=== PATIENT | female | born 1945 | race Caucasian/White ===

== ENCOUNTER 2021-10-30 04:37 | Day surgery (SDC) | payer OTHER, BC ==
[2021-10-27 09:08] VITALS: BMI 30.5
[2021-10-30 14:35] VITALS: TEMP 98
[2021-10-30 14:52] VITALS: BP 123/56; PULSE 64
== END 2021-10-30 15:27 | disposition home or self-care (01) ==
LOC: JRADIR 04:37
PROVIDERS: ATTEND Internal Medicine Hematology & Oncology
PROC: BW40ZZZ Ultrasonography of Abdomen (ICD-10-PCS; principal; 2021-10-30)
PROC: 0JB83ZX Excision of Abdomen Subcutaneous Tissue and Fascia, Percutaneous Approach, Diagnostic (ICD-10-PCS; 2021-10-30)
DX: C44.599 Other specified malignant neoplasm of skin of other part of trunk (principal); Z85.43 Personal history of malignant neoplasm of ovary
CPT/HCPCS: 49180; 87070; 87075; 87102; 87116; 87205; 87206; 87210; 88108; 88305-TC; 88341-TC

== ENCOUNTER 2021-12-25 04:39 | Day surgery (SDC) | payer OTHER, BC ==
[2021-12-25] MEDS ORDERED: MIDAZOLAM HCL 2 MG/2 ML SINGLE DOSE VIAL ONE (10:34)
[2021-12-25] MEDS ORDERED: MIDAZOLAM HCL 2 MG/2 ML SINGLE DOSE VIAL IVPUSH ONE (10:40)
[2021-12-25] MEDS ORDERED: ceFAZolin SODIUM 1 GM VIAL IVPB ONE (10:50)
[2021-12-25 14:01] VITALS: BP 119/56; PULSE 80; TEMP 98
== END 2021-12-25 13:30 | disposition home or self-care (01) ==
LOC: JRADIR 04:39
PROVIDERS: ATTEND Internal Medicine Hematology & Oncology
PROC: 02H633Z Insertion of Infusion Device into Right Atrium, Percutaneous Approach (ICD-10-PCS; principal; 2021-12-25)
DX: C56.9 Malignant neoplasm of unspecified ovary (principal)
CPT/HCPCS: 36561; C1788

== ENCOUNTER 2021-12-26 07:10 | Day surgery (SDC) | payer OTHER, BC ==
[2021-12-26] MEDS ORDERED: SODIUM CHLORIDE 250 ML IV ONE (09:00)
[2021-12-26 09:18] LABS: RBC 4.17 M/mm3 (3.60-5.2); WHITE BLOOD COUNT 5.9 K/mm3 (4.0-10.0)
[2021-12-26 09:19] LABS: BASO % 0.2 % (0-2.0); EOS % 0.2 % (0-4.5); HEMATOCRIT 38.4 % (32.4-45.2); LYMPH % 12.1 % (8-40); MCH 31.1 pg (25.7-33.7); MCHC 33.8 g/dl (32.0-36.0); MEAN PLT VOLUME 7.9 fl (7.5-11.1); MONO % 0.6 % (3.8-10.2); NEUT % 86.9 % (42.8-82.8); PLATELET COUNT 177 10^3/uL (134-434); RDW 13.8 % (11.6-15.6)
[2021-12-26] MEDS ORDERED: FOSAPREPITANT DIMEGLUMINE 150 MG VIAL IVPB ONE (09:30)
[2021-12-26] MEDS ORDERED: FAMOTIDINE 20 MG/50 ML IVPB 20 MG/50 ML MG IVPB ONE (09:30)
[2021-12-26] MEDS ORDERED: PALONOSETRON HCL 0.25 MG/5 ML VIAL IVPUSH ONE (09:30)
[2021-12-26] MEDS ORDERED: FOSAPREPITANT DIMEGLUMINE 150 MG in SODIUM CHLORIDE 145 ML IVPB ONE (09:30)
[2021-12-26] MEDS ORDERED: DEXAMETHASONE SODIUM PHOSPHATE 10 MG, DIPHENHYDRAMINE 25 MG in SODIUM CHLORIDE 100 ML IVPB ONE (09:30)
[2021-12-26 09:41] LABS: CALCIUM 9.3 mg/dL (8.5-10.1)
[2021-12-26 09:42] LABS: ALBUMIN 3.6 g/dl (3.4-5.0); BLOOD UREA NITROGEN 23.9 mg/dL (7-18); MAGNESIUM 1.7 mg/dL (1.8-2.4)
[2021-12-26 09:45] LABS: BILIRUBIN,DIRECT 0.1 mg/dL (0.0-0.2); CREATININE 1.1 mg/dL (0.55-1.3)
[2021-12-26 09:47] LABS: BILIRUBIN,TOTAL 0.4 mg/dL (0.2-1)
[2021-12-26] MEDS ORDERED: PACLITAXEL IVPB ONE (10:00)
[2021-12-26] MEDS ORDERED: SODIUM CHLORIDE IVPB ONE ×2 (10:00→13:00)
[2021-12-26] MEDS ORDERED: INSULIN (NOVOLOG) ASPART 100 UNITS/ML 10ML VIAL SQ ONE (10:01)
[2021-12-26] MEDS ORDERED: MAGNESIUM 2GM/50ML STERILE WATER IVPB IVPB ONE ×2 (10:45→13:45)
[2021-12-26] MEDS ORDERED: CARBOPLATIN IVPB ONE (13:00)
[2021-12-26] MEDS ORDERED: ACETAMINOPHEN 500 MG TABLET (FP) PO ONE ×2 (13:16→13:30)
[2021-12-26 17:36] VITALS: TEMP 98.5
[2021-12-26 17:43] VITALS: BP 145/47; PULSE 72
== END 2021-12-26 17:30 | disposition home or self-care (01) ==
LOC: JONCCHEMO 07:10
PROVIDERS: ATTEND Internal Medicine Hematology & Oncology
PROC: 3E013GC Introduction of Other Therapeutic Substance into Subcutaneous Tissue, Percutaneous Approach (ICD-10-PCS; principal; 2021-12-26)
DX: C56.9 Malignant neoplasm of unspecified ovary (principal); Z76.89 Persons encountering health services in other specified circumstances
CPT/HCPCS: 36415; 80048; 80076; 82607; 83036; 83735; 84439; 84443; 85025; 96372; J1453; J2469

== ENCOUNTER 2021-12-27 07:14 | Day surgery (SDC) | payer OTHER, BC ==
[2021-12-27] MEDS ORDERED: PEGFILGRASTIM-CBQV (UDENYCA) 6 MG/0.6 ML SYRINGE SQ ONE (09:00)
[2021-12-27 17:07] VITALS: BP 127/41; PULSE 54; TEMP 97.9
== END 2021-12-27 15:30 | disposition home or self-care (01) ==
LOC: JONCCHEMO 07:14
PROVIDERS: ATTEND Internal Medicine Hematology & Oncology
PROC: 3E013GC Introduction of Other Therapeutic Substance into Subcutaneous Tissue, Percutaneous Approach (ICD-10-PCS; principal; 2021-12-27)
DX: C56.9 Malignant neoplasm of unspecified ovary (principal); Z76.89 Persons encountering health services in other specified circumstances
CPT/HCPCS: 96372; Q5111

== ENCOUNTER 2022-01-16 06:35 | Day surgery (SDC) | payer OTHER, BC ==
[2022-01-16] MEDS ORDERED: SODIUM CHLORIDE 250 ML IV ONE (09:30)
[2022-01-16] MEDS ORDERED: FOSAPREPITANT DIMEGLUMINE 150 MG in SODIUM CHLORIDE 145 ML IVPB ONE (10:00)
[2022-01-16] MEDS ORDERED: PALONOSETRON HCL 0.25 MG/5 ML VIAL IVPUSH ONE (10:00)
[2022-01-16] MEDS ORDERED: DEXAMETHASONE SODIUM PHOSPHATE 10 MG, DIPHENHYDRAMINE 25 MG in SODIUM CHLORIDE 100 ML IVPB ONE (10:00)
[2022-01-16] MEDS ORDERED: FAMOTIDINE 20 MG/50 ML IVPB 20 MG/50 ML MG IVPB ONE (10:00)
[2022-01-16] MEDS ORDERED: SODIUM CHLORIDE IVPB ONE ×3 (10:30→13:30)
[2022-01-16] MEDS ORDERED: PACLITAXEL IVPB ONE (10:30)
[2022-01-16 11:10] LABS: BASO % 0.1 % (0-2.0); HEMATOCRIT 36.7 % (32.4-45.2); HEMOGLOBIN 12.3 GM/dL (10.7-15.3); LYMPH % 9.5 % (8-40); MCH 30.7 pg (25.7-33.7); MCHC 33.4 g/dl (32.0-36.0); MEAN CELL VOLUME 91.7 fl (80-96); MEAN PLT VOLUME 7.2 fl (7.5-11.1); MONO % 0.9 % (3.8-10.2); NEUT % 89.5 % (42.8-82.8); PLATELET COUNT 287 10^3/uL (134-434); RDW 14.7 % (11.6-15.6); WHITE BLOOD COUNT 5.2 K/mm3 (4.0-10.0)
[2022-01-16 11:33] LABS: CALCIUM 9.5 mg/dL (8.5-10.1)
[2022-01-16 11:34] LABS: ALBUMIN 3.7 g/dl (3.4-5.0)
[2022-01-16 11:36] LABS: BILIRUBIN,DIRECT 0.1 mg/dL (0.0-0.2)
[2022-01-16 11:37] LABS: CREATININE 1.1 mg/dL (0.55-1.3)
[2022-01-16 11:38] LABS: TOT PROT 6.9 g/dl (6.4-8.2)
[2022-01-16 11:39] LABS: BILIRUBIN,TOTAL 0.4 mg/dL (0.2-1)
[2022-01-16 11:48] LABS: MAGNESIUM 1.8 mg/dL (1.8-2.4)
[2022-01-16] MEDS ORDERED: INSULIN (NOVOLOG) ASPART 100 UNITS/ML 10ML VIAL SQ ONE (11:51)
[2022-01-16] MEDS ORDERED: CARBOPLATIN IVPB ONE ×2 (13:00→13:30)
[2022-01-16 15:29] VITALS: TEMP 98.2
[2022-01-16 18:36] VITALS: BP 133/58; PULSE 66
[2022-01-16] MEDS ORDERED: PORTA CATH FLUSH 10 ML IVPUSH PRN (18:36)
== END 2022-01-16 18:15 | disposition home or self-care (01) ==
LOC: JONCCHEMO 06:35
PROVIDERS: ATTEND Internal Medicine Hematology & Oncology
PROC: 3E013GC Introduction of Other Therapeutic Substance into Subcutaneous Tissue, Percutaneous Approach (ICD-10-PCS; principal; 2022-01-16)
DX: C56.9 Malignant neoplasm of unspecified ovary (principal); Z76.89 Persons encountering health services in other specified circumstances
CPT/HCPCS: 36415; 80048; 80076; 83735; 85025; 96372; J1453; J2469

== ENCOUNTER 2022-01-17 07:05 | Day surgery (SDC) | payer OTHER, BC ==
[2022-01-17] MEDS ORDERED: PEGFILGRASTIM-CBQV (UDENYCA) 6 MG/0.6 ML SYRINGE SQ ONE (10:45)
[2022-01-17 18:28] VITALS: BP 132/60; PULSE 58; TEMP 98
== END 2022-01-17 17:00 | disposition home or self-care (01) ==
LOC: JONCCHEMO 07:05
PROVIDERS: ATTEND Internal Medicine Hematology & Oncology
PROC: 3E013GC Introduction of Other Therapeutic Substance into Subcutaneous Tissue, Percutaneous Approach (ICD-10-PCS; principal; 2022-01-17)
DX: C56.9 Malignant neoplasm of unspecified ovary (principal); Z76.89 Persons encountering health services in other specified circumstances
CPT/HCPCS: 96372; Q5111

== ENCOUNTER 2022-01-26 04:27 | Day surgery (SDC) | payer OTHER, BC ==
[2022-01-23 13:45] VITALS: BMI 30.7
[2022-01-26 12:33] VITALS: TEMP 98.7
[2022-01-26 13:58] VITALS: BP 127/46; PULSE 66
== END 2022-01-26 14:06 | disposition home or self-care (01) ==
LOC: JASU-ENDO 04:27
PROVIDERS: ATTEND Internal Medicine Gastroenterology
PROC: 0DB98ZX Excision of Duodenum, Via Natural or Artificial Opening Endoscopic, Diagnostic (ICD-10-PCS; 2022-01-26)
PROC: 0DJD8ZZ Inspection of Lower Intestinal Tract, Via Natural or Artificial Opening Endoscopic (ICD-10-PCS; principal; 2022-01-26 12:00)
DX: Z12.11 Encounter for screening for malignant neoplasm of colon (principal); C76.3 Malignant neoplasm of pelvis; C56.9 Malignant neoplasm of unspecified ovary; K64.8 Other hemorrhoids; K29.80 Duodenitis without bleeding; K44.9 Diaphragmatic hernia without obstruction or gangrene; Z86.010 Personal history of colon polyps
CPT/HCPCS: 43239; G0105; 88305-TC

== ENCOUNTER 2022-02-06 07:59 | Day surgery (SDC) | payer OTHER, BC ==
[2022-02-06] MEDS ORDERED: SODIUM CHLORIDE 250 ML IV ONE (09:00)
[2022-02-06] MEDS ORDERED: DEXAMETHASONE SODIUM PHOSPHATE 10 MG, DIPHENHYDRAMINE 25 MG in SODIUM CHLORIDE 100 ML IVPB ONE (09:30)
[2022-02-06] MEDS ORDERED: FAMOTIDINE 20 MG/50 ML IVPB 20 MG/50 ML MG IVPB ONE (09:30)
[2022-02-06] MEDS ORDERED: PALONOSETRON HCL 0.25 MG/5 ML VIAL IVPUSH ONE (09:30)
[2022-02-06] MEDS ORDERED: FOSAPREPITANT DIMEGLUMINE 150 MG in SODIUM CHLORIDE 145 ML IVPB ONE (09:30)
[2022-02-06] MEDS ORDERED: PACLITAXEL IVPB ONE (10:00)
[2022-02-06] MEDS ORDERED: SODIUM CHLORIDE IVPB ONE ×2 (10:00→13:00)
[2022-02-06 11:24] LABS: HEMATOCRIT 35.2 % (32.4-45.2); HEMOGLOBIN 11.7 GM/dL (10.7-15.3); MCH 30.7 pg (25.7-33.7); MCHC 33.2 g/dl (32.0-36.0); MEAN CELL VOLUME 92.3 fl (80-96); MEAN PLT VOLUME 7.4 fl (7.5-11.1); PLATELET COUNT 232 10^3/uL (134-434); RBC 3.81 M/mm3 (3.60-5.2); WHITE BLOOD COUNT 4.9 K/mm3 (4.0-10.0)
[2022-02-06 11:44] LABS: CALCIUM 9.7 mg/dL (8.5-10.1)
[2022-02-06 11:45] LABS: ALBUMIN 3.7 g/dl (3.4-5.0); MAGNESIUM 1.9 mg/dL (1.8-2.4)
[2022-02-06 11:48] LABS: CREATININE 0.8 mg/dL (0.55-1.3)
[2022-02-06 11:49] LABS: TOT PROT 6.9 g/dl (6.4-8.2)
[2022-02-06 11:50] LABS: BILIRUBIN,DIRECT 0.1 mg/dL (0.0-0.2)
[2022-02-06] MEDS ORDERED: INSULIN (NOVOLOG) ASPART 100 UNITS/ML 10ML VIAL SQ ONE (11:53)
[2022-02-06 11:54] LABS: ANISOCYTOSIS 0; MACROCYTOSIS 0
[2022-02-06 12:06] LABS: BILIRUBIN,TOTAL 0.4 mg/dL (0.2-1)
[2022-02-06] MEDS ORDERED: CARBOPLATIN IVPB ONE (13:00)
[2022-02-06 18:16] VITALS: TEMP 98.3
[2022-02-06] MEDS ORDERED: PORTA CATH FLUSH 10 ML IVPUSH PRN (18:16)
[2022-02-06 18:38] VITALS: BP 126/63; PULSE 70
== END 2022-02-06 18:30 | disposition home or self-care (01) ==
LOC: JONCCHEMO 07:59
PROVIDERS: ATTEND Internal Medicine Hematology & Oncology
DX: Z51.11 Encounter for antineoplastic chemotherapy (principal); C56.9 Malignant neoplasm of unspecified ovary
CPT/HCPCS: 36415; 80048; 80076; 83735; 85025; 96375; 96413; 96415; 96417; J1453; J2469

== ENCOUNTER 2022-02-07 07:15 | Day surgery (SDC) | payer OTHER, BC ==
[2022-02-07] MEDS ORDERED: PEGFILGRASTIM-CBQV (UDENYCA) 6 MG/0.6 ML SYRINGE SQ ONE (10:00)
[2022-02-07 17:43] VITALS: BP 139/52; PULSE 55; TEMP 98
== END 2022-02-07 17:50 | disposition home or self-care (01) ==
LOC: JONCCHEMO 07:15
PROVIDERS: ATTEND Internal Medicine Hematology & Oncology
PROC: 3E013GC Introduction of Other Therapeutic Substance into Subcutaneous Tissue, Percutaneous Approach (ICD-10-PCS; principal; 2022-02-07)
DX: C56.9 Malignant neoplasm of unspecified ovary (principal); Z76.89 Persons encountering health services in other specified circumstances
CPT/HCPCS: 96372; Q5111

== ENCOUNTER 2022-02-20 09:04 | Day surgery (SDC) | payer OTHER, BC ==
[2022-02-20] MEDS: MAGNESIUM SULFATE IN WATER 2 GM/50 ML IVPB IVPB SCH ×2 (09:52→10:32)
[2022-02-20 10:02] LABS: BASO % 0.3 % (0-2.0); EOS % 1.6 % (0-4.5); HEMATOCRIT 31.6 % (32.4-45.2); HEMOGLOBIN 10.7 GM/dL (10.7-15.3); LYMPH % 17.2 % (8-40); MCH 31.5 pg (25.7-33.7); MCHC 33.8 g/dl (32.0-36.0); MEAN CELL VOLUME 93.2 fl (80-96); MEAN PLT VOLUME 7.3 fl (7.5-11.1); MONO % 8.7 % (3.8-10.2); NEUT % 72.2 % (42.8-82.8); PLATELET COUNT 127 10^3/uL (134-434); RBC 3.39 M/mm3 (3.60-5.2); RDW 17.7 % (11.6-15.6); WHITE BLOOD COUNT 6.3 K/mm3 (4.0-10.0)
[2022-02-20 10:18] LABS: ALBUMIN 3.5 g/dl (3.4-5.0); BLOOD UREA NITROGEN 21.4 mg/dL (7-18); CALCIUM 9.4 mg/dL (8.5-10.1)
[2022-02-20 10:19] LABS: MAGNESIUM 1.5 mg/dL (1.8-2.4)
[2022-02-20 10:22] LABS: BILIRUBIN,DIRECT 0.1 mg/dL (0.0-0.2); CREATININE 0.8 mg/dL (0.55-1.3)
[2022-02-20 10:23] LABS: BILIRUBIN,TOTAL 0.4 mg/dL (0.2-1); TOT PROT 6.4 g/dl (6.4-8.2)
[2022-02-20 18:08] VITALS: TEMP 98.7
[2022-02-20 18:11] VITALS: BP 121/54; PULSE 66
[2022-02-20] MEDS ORDERED: PORTA CATH FLUSH 10 ML IVPUSH PRN (18:11)
== END 2022-02-20 12:00 | disposition home or self-care (01) ==
LOC: JONCNONCHE 09:04
PROVIDERS: ATTEND Internal Medicine Hematology & Oncology
PROC: 3E043GC Introduction of Other Therapeutic Substance into Central Vein, Percutaneous Approach (ICD-10-PCS; principal; 2022-02-20)
DX: C56.9 Malignant neoplasm of unspecified ovary (principal); Z76.89 Persons encountering health services in other specified circumstances
CPT/HCPCS: 36415; 80048; 80076; 83735; 85025; 96365; 96366

== ENCOUNTER 2022-03-15 06:19 | Day surgery (SDC) | payer OTHER, BC ==
[2022-03-15 10:40] LABS: BASO % 0.9 % (0-2.0); EOS % 2.2 % (0-4.5); HEMATOCRIT 33.5 % (32.4-45.2); HEMOGLOBIN 11.4 GM/dL (10.7-15.3); LYMPH % 19.8 % (8-40); MCH 32.8 pg (25.7-33.7); MCHC 34.1 g/dl (32.0-36.0); MEAN PLT VOLUME 7.2 fl (7.5-11.1); NEUT % 67.1 % (42.8-82.8); PLATELET COUNT 192 10^3/uL (134-434); RBC 3.49 M/mm3 (3.60-5.2); RDW 18.1 % (11.6-15.6); WHITE BLOOD COUNT 5.9 K/mm3 (4.0-10.0)
[2022-03-15 11:00] LABS: CALCIUM 8.8 mg/dL (8.5-10.1)
[2022-03-15] MEDS ORDERED: SODIUM CHLORIDE 250 ML IV ONE (11:00)
[2022-03-15 11:01] LABS: ALBUMIN 3.3 g/dl (3.4-5.0); BLOOD UREA NITROGEN 19.6 mg/dL (7-18); MAGNESIUM 1.7 mg/dL (1.8-2.4)
[2022-03-15 11:04] LABS: CREATININE 0.7 mg/dL (0.55-1.3)
[2022-03-15 11:06] LABS: BILIRUBIN,TOTAL 0.2 mg/dL (0.2-1); TOT PROT 6.4 g/dl (6.4-8.2)
[2022-03-15 11:07] LABS: BILIRUBIN,DIRECT 0.1 mg/dL (0.0-0.2)
[2022-03-15] MEDS ORDERED: PALONOSETRON HCL 0.25 MG/5 ML VIAL IVPUSH ONE (11:30)
[2022-03-15] MEDS ORDERED: DEXAMETHASONE SODIUM PHOSPHATE 10 MG, DIPHENHYDRAMINE 25 MG in SODIUM CHLORIDE 100 ML IVPB ONE (11:30)
[2022-03-15] MEDS ORDERED: MAGNESIUM 1GM/D5W - 1 GM/100 ML IVPB IVPB ONE (11:30)
[2022-03-15] MEDS ORDERED: FAMOTIDINE 20 MG/50 ML IVPB 20 MG/50 ML MG IVPB ONE (11:30)
[2022-03-15] MEDS ORDERED: FOSAPREPITANT DIMEGLUMINE 150 MG in SODIUM CHLORIDE 145 ML IVPB ONE (11:30)
[2022-03-15] MEDS ORDERED: SODIUM CHLORIDE IVPB ONE (12:00)
[2022-03-15] MEDS ORDERED: CARBOPLATIN IVPB ONE (12:00)
[2022-03-15] MEDS ORDERED: DOXORUBICIN HCL LIPOSOMAL IV ONE (12:30)
[2022-03-15] MEDS ORDERED: DEXTROSE 5% IV ONE (12:30)
[2022-03-15] MEDS ORDERED: WATER IV ONE (12:30)
[2022-03-15 17:51] VITALS: TEMP 98.4
[2022-03-15] MEDS ORDERED: PORTA CATH FLUSH 10 ML IVPUSH PRN (17:51)
[2022-03-16 08:52] VITALS: BP 115/73; PULSE 85
== END 2022-03-15 16:30 | disposition home or self-care (01) ==
LOC: JONCCHEMO 06:19
PROVIDERS: ATTEND Internal Medicine Hematology & Oncology
PROC: 3E04305 Introduction of Other Antineoplastic into Central Vein, Percutaneous Approach (ICD-10-PCS; principal; 2022-03-15)
PROC: 3E043GC Introduction of Other Therapeutic Substance into Central Vein, Percutaneous Approach (ICD-10-PCS; 2022-03-15)
PROC: 3E0437Z Introduction of Electrolytic and Water Balance Substance into Central Vein, Percutaneous Approach (ICD-10-PCS; 2022-03-15)
DX: Z51.11 Encounter for antineoplastic chemotherapy (principal); C56.9 Malignant neoplasm of unspecified ovary
CPT/HCPCS: 36415; 80048; 80076; 83735; 85025; 86304; 96367; 96375; 96413; 96417; J1453; J2469; Q2049

== ENCOUNTER 2022-03-16 08:07 | Day surgery (SDC) | payer OTHER, BC ==
[2022-03-16] MEDS ORDERED: PEGFILGRASTIM-CBQV (UDENYCA) 6 MG/0.6 ML SYRINGE SQ ONE (09:45)
[2022-03-16 15:27] VITALS: BP 137/55; PULSE 78; TEMP 98.3
== END 2022-03-16 15:30 | disposition home or self-care (01) ==
LOC: JONCCHEMO 08:07
PROVIDERS: ATTEND Internal Medicine Hematology & Oncology
PROC: 3E013GC Introduction of Other Therapeutic Substance into Subcutaneous Tissue, Percutaneous Approach (ICD-10-PCS; principal; 2022-03-16)
DX: Z76.89 Persons encountering health services in other specified circumstances (principal); C56.9 Malignant neoplasm of unspecified ovary
CPT/HCPCS: 96372; Q5111

== ENCOUNTER 2022-04-12 06:32 | Day surgery (SDC) | payer OTHER, BC ==
[2022-04-12] MEDS ORDERED: SODIUM CHLORIDE 250 ML IV ONE (09:00)
[2022-04-12] MEDS ORDERED: FAMOTIDINE 20 MG/50 ML IVPB 20 MG/50 ML MG IVPB ONE (09:30)
[2022-04-12] MEDS ORDERED: PALONOSETRON HCL 0.25 MG/5 ML VIAL IVPUSH ONE (09:30)
[2022-04-12] MEDS ORDERED: FOSAPREPITANT DIMEGLUMINE 150 MG in SODIUM CHLORIDE 145 ML IVPB ONE (09:30)
[2022-04-12] MEDS ORDERED: DEXAMETHASONE SODIUM PHOSPHATE 10 MG, DIPHENHYDRAMINE 25 MG in SODIUM CHLORIDE 100 ML IVPB ONE (09:30)
[2022-04-12] MEDS ORDERED: SODIUM CHLORIDE IVPB ONE (10:00)
[2022-04-12] MEDS ORDERED: CARBOPLATIN IVPB ONE (10:00)
[2022-04-12 10:14] LABS: BASO % 0.9 % (0-2.0); EOS % 1.9 % (0-4.5); HEMATOCRIT 31.9 % (32.4-45.2); HEMOGLOBIN 10.8 GM/dL (10.7-15.3); LYMPH % 20.6 % (8-40); MCH 33.4 pg (25.7-33.7); MCHC 33.8 g/dl (32.0-36.0); MEAN CELL VOLUME 98.8 fl (80-96); MEAN PLT VOLUME 6.9 fl (7.5-11.1); NEUT % 64.6 % (42.8-82.8); PLATELET COUNT 259 10^3/uL (134-434); RBC 3.23 M/mm3 (3.60-5.2); WHITE BLOOD COUNT 5.7 K/mm3 (4.0-10.0)
[2022-04-12] MEDS ORDERED: DEXTROSE 5% IV ONE (10:30)
[2022-04-12] MEDS ORDERED: DOXORUBICIN HCL LIPOSOMAL IV ONE (10:30)
[2022-04-12] MEDS ORDERED: WATER IV ONE (10:30)
[2022-04-12 10:38] LABS: ALBUMIN 3.4 g/dl (3.4-5.0); BLOOD UREA NITROGEN 24.2 mg/dL (7-18); CALCIUM 9.3 mg/dL (8.5-10.1); MAGNESIUM 1.7 mg/dL (1.8-2.4)
[2022-04-12 10:41] LABS: BILIRUBIN,DIRECT 0.1 mg/dL (0.0-0.2); CREATININE 0.8 mg/dL (0.55-1.3)
[2022-04-12 10:43] LABS: BILIRUBIN,TOTAL 0.3 mg/dL (0.2-1); TOT PROT 6.5 g/dl (6.4-8.2)
[2022-04-12] MEDS ORDERED: MAGNESIUM 2GM/50ML STERILE WATER IVPB IVPB ONE (11:45)
[2022-04-12 16:03] VITALS: TEMP 98.3
[2022-04-12] MEDS ORDERED: PORTA CATH FLUSH 10 ML IVPUSH PRN ×2 (16:16→16:33)
[2022-04-12 16:41] VITALS: BP 118/41; PULSE 73; RESP 18
== END 2022-04-12 16:00 | disposition home or self-care (01) ==
LOC: JONCCHEMO 06:32
PROVIDERS: ATTEND Internal Medicine Hematology & Oncology
DX: Z51.11 Encounter for antineoplastic chemotherapy (principal); C56.9 Malignant neoplasm of unspecified ovary
CPT/HCPCS: 36415; 80048; 80076; 83735; 85025; 96366; 96367; 96375; 96413; 96417; J1453; J2469; Q2049

== ENCOUNTER 2022-04-13 06:28 | Day surgery (SDC) | payer OTHER, BC ==
[2022-04-13] MEDS ORDERED: PEGFILGRASTIM-CBQV (UDENYCA) 6 MG/0.6 ML SYRINGE SQ ONE (10:00)
[2022-04-13 18:10] VITALS: BP 144/66; PULSE 73; RESP 18; TEMP 98.3
== END 2022-04-13 15:10 | disposition home or self-care (01) ==
LOC: JONCCHEMO 06:28
PROVIDERS: ATTEND Internal Medicine Hematology & Oncology
PROC: 3E013GC Introduction of Other Therapeutic Substance into Subcutaneous Tissue, Percutaneous Approach (ICD-10-PCS; principal; 2022-04-13)
DX: C56.9 Malignant neoplasm of unspecified ovary (principal); Z76.89 Persons encountering health services in other specified circumstances
CPT/HCPCS: 96372; Q5111

== ENCOUNTER 2022-05-10 06:52 | Day surgery (SDC) | payer OTHER, BC ==
[2022-05-10] MEDS ORDERED: SODIUM CHLORIDE 250 ML IV ONE (09:30)
[2022-05-10] MEDS ORDERED: PALONOSETRON HCL 0.25 MG/5 ML VIAL IVPUSH ONE (10:00)
[2022-05-10] MEDS ORDERED: FOSAPREPITANT DIMEGLUMINE 150 MG in SODIUM CHLORIDE 145 ML IVPB ONE (10:00)
[2022-05-10] MEDS ORDERED: FAMOTIDINE 20 MG/50 ML IVPB 20 MG/50 ML MG IVPB ONE (10:00)
[2022-05-10] MEDS ORDERED: DEXAMETHASONE SODIUM PHOSPHATE 10 MG, DIPHENHYDRAMINE 25 MG in SODIUM CHLORIDE 100 ML IVPB ONE (10:00)
[2022-05-10] MEDS ORDERED: SODIUM CHLORIDE IVPB ONE (10:30)
[2022-05-10] MEDS ORDERED: CARBOPLATIN IVPB ONE (10:30)
[2022-05-10] MEDS ORDERED: WATER IV ONE (11:00)
[2022-05-10] MEDS ORDERED: DOXORUBICIN HCL LIPOSOMAL IV ONE (11:00)
[2022-05-10] MEDS ORDERED: DEXTROSE 5% IV ONE (11:00)
[2022-05-10 11:20] LABS: BASO % 0.6 % (0-2.0); EOS % 1.5 % (0-4.5); HEMATOCRIT 32.7 % (32.4-45.2); HEMOGLOBIN 11.1 GM/dL (10.7-15.3); MCH 34.3 pg (25.7-33.7); MEAN PLT VOLUME 6.6 fl (7.5-11.1); MONO % 15.3 % (3.8-10.2); NEUT % 57.6 % (42.8-82.8); PLATELET COUNT 233 10^3/uL (134-434); RBC 3.24 M/mm3 (3.60-5.2); RDW 16.8 % (11.6-15.6); WHITE BLOOD COUNT 4.9 K/mm3 (4.0-10.0)
[2022-05-10 11:38] VITALS: RESP 18; TEMP 98.7
[2022-05-10 11:47] LABS: ALBUMIN 3.6 g/dl (3.4-5.0); BLOOD UREA NITROGEN 20.2 mg/dL (7-18); MAGNESIUM 1.6 mg/dL (1.8-2.4)
[2022-05-10 11:49] LABS: BILIRUBIN,DIRECT 0.1 mg/dL (0.0-0.2); CREATININE 0.8 mg/dL (0.55-1.3)
[2022-05-10 11:51] LABS: BILIRUBIN,TOTAL 0.3 mg/dL (0.2-1); TOT PROT 6.7 g/dl (6.4-8.2)
[2022-05-10] MEDS ORDERED: MAGNESIUM SULF 50% (8.12 MEQ/2 ML-1 GM VIAL) IVPB ONE (11:58)
[2022-05-10] MEDS ORDERED: MAGNESIUM SULFATE IN WATER 2 GM/50 ML IVPB IVPB ONE (13:00)
[2022-05-10 17:04] VITALS: BP 134/50; PULSE 72
[2022-05-10] MEDS ORDERED: PORTA CATH FLUSH 10 ML IVPUSH PRN (17:04)
[2022-05-12 02:10] LABS: EPI CELLS 6 /uL (0-25.1); HYALINE CASTS 0 /uL (0-3.1); URINE APPEARANCE Clear; URINE BACTERIA 2 /uL (0-1359); URINE BILIRUBIN Negative (NEGATIVE); URINE COLOR Yellow; URINE GLUCOSE (UA) Negative (NEGATIVE); URINE KETONE Negative (NEGATIVE); URINE LEUK ESTERASE Negative (NEGATIVE); URINE NITRITE Negative (NEGATIVE); URINE PROTEIN Negative (NEGATIVE); URINE RBC 4 /uL (0-23.9); URINE UROBILINOGEN 0.2 mg/dL (0.2-1.0); URINE WBC 7 /uL (0-25.8)
== END 2022-05-10 16:45 | disposition home or self-care (01) ==
LOC: JONCCHEMO 06:52
PROVIDERS: ATTEND Internal Medicine Hematology & Oncology
DX: Z51.11 Encounter for antineoplastic chemotherapy (principal); C56.9 Malignant neoplasm of unspecified ovary
CPT/HCPCS: 36415; 80048; 80076; 81003; 83735; 85025; 86304; 87086; 96367; 96375; 96413; 96417; J1453; J2469; Q2049

== ENCOUNTER 2022-05-11 08:58 | Day surgery (SDC) | payer OTHER, BC ==
[2022-05-11] MEDS ORDERED: PEGFILGRASTIM-CBQV (UDENYCA) 6 MG/0.6 ML SYRINGE SQ ONE (10:00)
[2022-05-11] MEDS ORDERED: MAGNESIUM 2GM/50ML STERILE WATER IVPB IVPB ONE (10:00)
[2022-05-11] MEDS ORDERED: PORTA CATH FLUSH 10 ML IVPUSH PRN (16:50)
[2022-05-11 17:43] VITALS: TEMP 98.2
[2022-05-11 17:48] VITALS: BP 126/49; PULSE 62; RESP 18
== END 2022-05-11 16:50 | disposition home or self-care (01) ==
LOC: JONCCHEMO 08:58
PROVIDERS: ATTEND Internal Medicine Hematology & Oncology
PROC: 3E013GC Introduction of Other Therapeutic Substance into Subcutaneous Tissue, Percutaneous Approach (ICD-10-PCS; principal; 2022-05-11)
PROC: 3E043GC Introduction of Other Therapeutic Substance into Central Vein, Percutaneous Approach (ICD-10-PCS; 2022-05-11)
DX: C56.9 Malignant neoplasm of unspecified ovary (principal)
CPT/HCPCS: 96365; 96372; Q5111

== ENCOUNTER 2022-06-07 10:19 | Day surgery (SDC) | payer OTHER, BC ==
[~2022-06-07 10:19] MED LIST: CARBOPLATIN IVPB ONE; DEXAMETHASONE SODIUM PHOSPHATE 10 MG, DIPHENHYDRAMINE 25 MG in SODIUM CHLORIDE 100 ML IVPB ONE; FAMOTIDINE 20 MG/50 ML IVPB 20 MG/50 ML MG IVPB ONE; FOSAPREPITANT DIMEGLUMINE 150 MG in SODIUM CHLORIDE 145 ML IVPB ONE; PALONOSETRON HCL 0.25 MG/5 ML VIAL IVPUSH ONE; SODIUM CHLORIDE 250 ML IV ONE; SODIUM CHLORIDE IVPB ONE
[2022-06-07] MEDS ORDERED: DOXORUBICIN HCL LIPOSOMAL IV ONE (10:30)
[2022-06-07] MEDS ORDERED: WATER IV ONE (10:30)
[2022-06-07] MEDS ORDERED: DEXTROSE 5% IV ONE (10:30)
[2022-06-07 11:08] LABS: BASO % 0.4 % (0-2.0); EOS % 1.5 % (0-4.5); HEMATOCRIT 30.2 % (32.4-45.2); MCH 34.1 pg (25.7-33.7); MCHC 33.1 g/dl (32.0-36.0); MEAN CELL VOLUME 103.1 fl (80-96); MEAN PLT VOLUME 7.2 fl (7.5-11.1); MONO % 15.1 % (3.8-10.2); PLATELET COUNT 221 10^3/uL (134-434); RBC 2.93 M/mm3 (3.60-5.2); RDW 18.5 % (11.6-15.6); WHITE BLOOD COUNT 4.8 K/mm3 (4.0-10.0)
[2022-06-07 11:35] LABS: ALBUMIN 3.4 g/dl (3.4-5.0); BLOOD UREA NITROGEN 20.4 mg/dL (7-18); CALCIUM 9.2 mg/dL (8.5-10.1); MAGNESIUM 1.7 mg/dL (1.8-2.4)
[2022-06-07 11:38] LABS: BILIRUBIN,DIRECT 0.1 mg/dL (0.0-0.2); CREATININE 0.9 mg/dL (0.55-1.3)
[2022-06-07 11:40] LABS: BILIRUBIN,TOTAL 0.4 mg/dL (0.2-1); TOT PROT 6.4 g/dl (6.4-8.2)
[2022-06-07] MEDS ORDERED: MAGNESIUM 2GM/50ML STERILE WATER IVPB IVPB ONE (12:00)
[2022-06-07 16:59] VITALS: BP 129/69; PULSE 85; RESP 20; TEMP 98.6
[2022-06-07] MEDS ORDERED: PORTA CATH FLUSH 10 ML IVPUSH PRN (16:59)
== END 2022-06-07 17:00 | disposition home or self-care (01) ==
LOC: JONCCHEMO 10:19
PROVIDERS: ATTEND Internal Medicine Hematology & Oncology
DX: Z51.11 Encounter for antineoplastic chemotherapy (principal); C56.9 Malignant neoplasm of unspecified ovary
CPT/HCPCS: 36415; 80048; 80076; 83735; 85025; 86304; 96361; 96366; 96367; 96413; 96417; J1453; J2469; Q2049

== ENCOUNTER 2022-06-08 14:09 | Day surgery (SDC) | payer OTHER, BC ==
[~2022-06-08 14:09] MED LIST changes: -CARBOPLATIN IVPB ONE; -DEXAMETHASONE SODIUM PHOSPHATE 10 MG, DIPHENHYDRAMINE 25 MG in SODIUM CHLORIDE 100 ML IVPB ONE; -FAMOTIDINE 20 MG/50 ML IVPB 20 MG/50 ML MG IVPB ONE; -FOSAPREPITANT DIMEGLUMINE 150 MG in SODIUM CHLORIDE 145 ML IVPB ONE; -PALONOSETRON HCL 0.25 MG/5 ML VIAL IVPUSH ONE; +PEGFILGRASTIM-CBQV (UDENYCA) 6 MG/0.6 ML SYRINGE SQ ONE; -SODIUM CHLORIDE 250 ML IV ONE; -SODIUM CHLORIDE IVPB ONE
[2022-06-08 16:19] VITALS: BP 135/58; PULSE 69; RESP 18; TEMP 97.3
== END 2022-06-08 14:35 | disposition home or self-care (01) ==
LOC: JONCCHEMO 14:09
PROVIDERS: ATTEND Internal Medicine Hematology & Oncology
PROC: 3E013GC Introduction of Other Therapeutic Substance into Subcutaneous Tissue, Percutaneous Approach (ICD-10-PCS; principal; 2022-06-08)
DX: C56.9 Malignant neoplasm of unspecified ovary (principal); Z76.89 Persons encountering health services in other specified circumstances
CPT/HCPCS: 96372; Q5111

== ENCOUNTER 2022-07-05 11:07 | Day surgery (SDC) | payer OTHER, BC ==
[2022-07-05 11:03] LABS: HEMATOCRIT 27.7 % (32.4-45.2); HEMOGLOBIN 9.4 GM/dL (10.7-15.3); MCH 36.3 pg (25.7-33.7); MCHC 33.8 g/dl (32.0-36.0); MEAN CELL VOLUME 107.3 fl (80-96); MEAN PLT VOLUME 7.3 fl (7.5-11.1); PLATELET COUNT 175 10^3/uL (134-434); RBC 2.58 M/mm3 (3.60-5.2); RDW 19.4 % (11.6-15.6); WHITE BLOOD COUNT 4.8 K/mm3 (4.0-10.0)
[~2022-07-05 11:07] MED LIST changes: +CARBOPLATIN IVPB ONE; +DEXAMETHASONE SODIUM PHOSPHATE 10 MG, DIPHENHYDRAMINE 25 MG in SODIUM CHLORIDE 100 ML IVPB ONE; +DEXTROSE 5% IV ONE; +DOXORUBICIN HCL LIPOSOMAL IV ONE; +FAMOTIDINE 20 MG/50 ML IVPB 20 MG/50 ML MG IVPB ONE; +FOSAPREPITANT DIMEGLUMINE 150 MG in SODIUM CHLORIDE 145 ML IVPB ONE; +PALONOSETRON HCL 0.25 MG/5 ML VIAL IVPUSH ONE; -PEGFILGRASTIM-CBQV (UDENYCA) 6 MG/0.6 ML SYRINGE SQ ONE; +SODIUM CHLORIDE 250 ML IV ONE; +SODIUM CHLORIDE IVPB ONE; +WATER IV ONE
[2022-07-05 11:45] LABS: ALBUMIN 3.5 g/dl (3.4-5.0); BLOOD UREA NITROGEN 22.4 mg/dL (7-18); CALCIUM 9.3 mg/dL (8.5-10.1); MAGNESIUM 1.7 mg/dL (1.8-2.4)
[2022-07-05 11:47] LABS: ANISOCYTOSIS 1+; BILIRUBIN,TOTAL 0.4 mg/dL (0.2-1); MACROCYTOSIS 1+; OVALOCYTE 1+; TEAR DROP CELLS 1+
[2022-07-05 11:50] LABS: TOT PROT 6.6 g/dl (6.4-8.2)
[2022-07-05 11:51] LABS: BILIRUBIN,DIRECT 0.1 mg/dL (0.0-0.2)
[2022-07-05] MEDS ORDERED: SODIUM CHLORIDE IVPB ONE (12:45)
[2022-07-05] MEDS ORDERED: CARBOPLATIN IVPB ONE (12:45)
[2022-07-05 17:22] VITALS: RESP 18; TEMP 98.2
[2022-07-05 17:34] VITALS: BP 138/50; PULSE 76
[2022-07-05] MEDS ORDERED: PORTA CATH FLUSH 10 ML IVPUSH PRN (17:34)
== END 2022-07-05 16:20 | disposition home or self-care (01) ==
LOC: JONCCHEMO 11:07
PROVIDERS: ATTEND Internal Medicine Hematology & Oncology
DX: Z51.11 Encounter for antineoplastic chemotherapy (principal); C56.9 Malignant neoplasm of unspecified ovary
CPT/HCPCS: 36415; 80048; 80076; 83735; 85025; 86304; 96367; 96375; 96413; 96417; J1453; J2469; Q2049

== ENCOUNTER 2022-07-06 14:43 | Day surgery (SDC) | payer OTHER, BC ==
[~2022-07-06 14:43] MED LIST changes: -CARBOPLATIN IVPB ONE; -DEXAMETHASONE SODIUM PHOSPHATE 10 MG, DIPHENHYDRAMINE 25 MG in SODIUM CHLORIDE 100 ML IVPB ONE; -DEXTROSE 5% IV ONE; -DOXORUBICIN HCL LIPOSOMAL IV ONE; -FAMOTIDINE 20 MG/50 ML IVPB 20 MG/50 ML MG IVPB ONE; -FOSAPREPITANT DIMEGLUMINE 150 MG in SODIUM CHLORIDE 145 ML IVPB ONE; -PALONOSETRON HCL 0.25 MG/5 ML VIAL IVPUSH ONE; +PEGFILGRASTIM-CBQV (UDENYCA) 6 MG/0.6 ML SYRINGE SQ ONE; -SODIUM CHLORIDE 250 ML IV ONE; -SODIUM CHLORIDE IVPB ONE; -WATER IV ONE
[2022-07-06 18:20] VITALS: BP 150/51; PULSE 83; RESP 20; TEMP 97.1
== END 2022-07-06 14:55 | disposition home or self-care (01) ==
LOC: JONCCHEMO 14:43
PROVIDERS: ATTEND Internal Medicine Hematology & Oncology
PROC: 3E013GC Introduction of Other Therapeutic Substance into Subcutaneous Tissue, Percutaneous Approach (ICD-10-PCS; principal; 2022-07-06)
DX: C56.9 Malignant neoplasm of unspecified ovary (principal); Z76.89 Persons encountering health services in other specified circumstances
CPT/HCPCS: 96372; Q5111

== ENCOUNTER 2022-08-02 10:47 | Day surgery (SDC) | payer OTHER, BC ==
[~2022-08-02 10:47] MED LIST changes: +CARBOPLATIN IVPB ONE; +DEXAMETHASONE SODIUM PHOSPHATE 10 MG, DIPHENHYDRAMINE 25 MG in SODIUM CHLORIDE 100 ML IVPB ONE; +DEXTROSE 5% IV ONE; +DOXORUBICIN HCL LIPOSOMAL IV ONE; +FAMOTIDINE 20 MG/50 ML IVPB 20 MG/50 ML MG IVPB ONE; +FOSAPREPITANT DIMEGLUMINE 150 MG in SODIUM CHLORIDE 145 ML IVPB ONE; +PALONOSETRON HCL 0.25 MG/5 ML VIAL IVPUSH ONE; -PEGFILGRASTIM-CBQV (UDENYCA) 6 MG/0.6 ML SYRINGE SQ ONE; +SODIUM CHLORIDE 250 ML IV ONE; +SODIUM CHLORIDE IVPB ONE; +WATER IV ONE
[2022-08-02 11:35] LABS: BASO % 0.5 % (0-2.0); HEMATOCRIT 27.2 % (32.4-45.2); HEMOGLOBIN 8.9 GM/dL (10.7-15.3); LYMPH % 20.8 % (8-40); MCH 35.7 pg (25.7-33.7); MCHC 32.6 g/dl (32.0-36.0); MEAN CELL VOLUME 109.6 fl (80-96); MEAN PLT VOLUME 7.8 fl (7.5-11.1); NEUT % 61.7 % (42.8-82.8); PLATELET COUNT 153 10^3/uL (134-434); RBC 2.48 M/mm3 (3.60-5.2); RDW 17.8 % (11.6-15.6); WHITE BLOOD COUNT 4.9 K/mm3 (4.0-10.0)
[2022-08-02 12:22] LABS: BLOOD UREA NITROGEN 28.1 mg/dL (7-18)
[2022-08-02 12:23] LABS: ALBUMIN 3.5 g/dl (3.4-5.0); CALCIUM 9.2 mg/dL (8.5-10.1); MAGNESIUM 1.7 mg/dL (1.8-2.4)
[2022-08-02 12:26] LABS: BILIRUBIN,DIRECT 0.2 mg/dL (0.0-0.2); CREATININE 1.1 mg/dL (0.55-1.3)
[2022-08-02 12:28] LABS: BILIRUBIN,TOTAL 0.4 mg/dL (0.2-1); TOT PROT 6.6 g/dl (6.4-8.2)
[2022-08-02 12:37] LABS: ANISOCYTOSIS 1+; MACROCYTOSIS 2+; OVALOCYTE 1+
[2022-08-02] MEDS ORDERED: SODIUM CHLORIDE IVPB ONE (13:00)
[2022-08-02] MEDS ORDERED: MAGNESIUM 2GM/50ML STERILE WATER IVPB IVPB ONE (13:00)
[2022-08-02] MEDS ORDERED: CARBOPLATIN IVPB ONE (13:00)
[2022-08-02 17:44] VITALS: BP 122/78; PULSE 87; RESP 20; TEMP 98.2
[2022-08-02] MEDS ORDERED: PORTA CATH FLUSH 10 ML IVPUSH PRN (17:44)
== END 2022-08-02 17:05 | disposition home or self-care (01) ==
LOC: JONCCHEMO 10:47
PROVIDERS: ATTEND Internal Medicine Hematology & Oncology
DX: Z51.11 Encounter for antineoplastic chemotherapy (principal); C56.9 Malignant neoplasm of unspecified ovary
CPT/HCPCS: 36415; 80048; 80076; 83735; 85025; 86304; 96366; 96367; 96375; 96413; 96417; J1453; J2469; Q2049

== ENCOUNTER 2022-08-03 14:35 | Day surgery (SDC) | payer OTHER, BC ==
[~2022-08-03 14:35] MED LIST changes: -CARBOPLATIN IVPB ONE; -DEXAMETHASONE SODIUM PHOSPHATE 10 MG, DIPHENHYDRAMINE 25 MG in SODIUM CHLORIDE 100 ML IVPB ONE; -DEXTROSE 5% IV ONE; -DOXORUBICIN HCL LIPOSOMAL IV ONE; -FAMOTIDINE 20 MG/50 ML IVPB 20 MG/50 ML MG IVPB ONE; -FOSAPREPITANT DIMEGLUMINE 150 MG in SODIUM CHLORIDE 145 ML IVPB ONE; -PALONOSETRON HCL 0.25 MG/5 ML VIAL IVPUSH ONE; +PEGFILGRASTIM-CBQV (UDENYCA) 6 MG/0.6 ML SYRINGE SQ ONE; -SODIUM CHLORIDE 250 ML IV ONE; -SODIUM CHLORIDE IVPB ONE; -WATER IV ONE
[2022-08-03 15:47] VITALS: BP 137/75; PULSE 78; RESP 18; TEMP 97.8
== END 2022-08-03 14:50 | disposition home or self-care (01) ==
LOC: JONCCHEMO 14:35
PROVIDERS: ATTEND Internal Medicine Hematology & Oncology
PROC: 3E013GC Introduction of Other Therapeutic Substance into Subcutaneous Tissue, Percutaneous Approach (ICD-10-PCS; principal; 2022-08-03)
DX: C56.9 Malignant neoplasm of unspecified ovary (principal); Z76.89 Persons encountering health services in other specified circumstances
CPT/HCPCS: 96372; Q5111